=== PATIENT | female | born 1970 | race Caucasian/White ===

== ENCOUNTER 2018-11-22 13:00 | Emergency (ER) | payer OTHER ==
[~2018-11-22] VITALS: Ht 154.9 cm; Wt 63.5 kg
== END 2018-11-22 18:10 | disposition home or self-care (01) ==
LOC: ER 13:00
DX: R42 Dizziness and giddiness (principal)

== ENCOUNTER 2019-09-24 11:10 | Emergency (ER) | payer OTHER ==
[~2019-09-24] VITALS: Ht 165.1 cm; Wt 54.9 kg
[2019-09-24] MEDS ORDERED: AMBIEN5 MG (11:33)
[2019-09-24] MEDS ORDERED: XANAX1 MG (11:34)
[2019-09-24] MEDS ORDERED: WELLBUTRIN SR100 MG (11:34)
== END 2019-09-24 13:33 | disposition home or self-care (01) ==
LOC: ER 11:10
DX: J31.0 Chronic rhinitis (principal)

== ENCOUNTER 2021-05-28 17:21 | Emergency (ER) | payer OTHER ==
[~2021-05-28] VITALS: Ht 165.1 cm; Wt 67.1 kg
[~2021-05-28 17:21] MED LIST: AMBIEN5 MG; WELLBUTRIN SR100 MG; XANAX1 MG
[2021-05-28] MEDS ORDERED: CLONAZEPAM1 MG PO (17:48)
[2021-05-28] MEDS ORDERED: SEROQUEL XR300 MG PO (17:49)
[2021-05-28] MEDS ORDERED: KEPPRA500 MG PO (17:50)
== END 2021-05-28 20:19 | disposition home or self-care (01) ==
LOC: ER 17:21
DX: S89.82XA Other specified injuries of left lower leg, initial encounter (principal); X58.XXXA Exposure to other specified factors, initial encounter; Y92.89 Other specified places as the place of occurrence of the external cause; M76.9 Unspecified enthesopathy, lower limb, excluding foot

== ENCOUNTER 2024-12-11 16:51 | Emergency (ER) | payer OTHER ==
[~2024-12-11] VITALS: Ht 165.1 cm; Wt 68.0 kg
[~2024-12-11 16:51] MED LIST changes: +CLONAZEPAM1 MG PO; +KEPPRA500 MG PO; +SEROQUEL XR300 MG PO
[2024-12-11] MEDS ORDERED: FAMOtidine 10 MG/ML (4ML VIAL) IV ONE (17:15)
[2024-12-11] MEDS ORDERED: FAMOTIDINE/PF 20 MG/2 ML VIAL ONE (17:22)
[2024-12-11 17:28] LABS: BASO % 0.4 % (0.1-1.2); EOS # 0.08 (0.04-0.54); EOS % 0.9 % (0.7-7.0); LYMPH # 1.31 (1.18-3.74); LYMPH % 14.0 % (19.3-53.1); MEAN PLATELET VOLUME 9.10 fl (9.4-12.4); MONO # 0.52 (0.24-0.82); MONO % 5.6 % (4.7-12.5); NEUT # 7.36 (1.56-6.13); NEUT % 78.9 % (34.0-71.1); RED CELL DISTRIBUTION WIDTH 12.7 % (11.6-14.4)
[2024-12-11 17:56] LABS: INR 1.01
[2024-12-11 18:02] LABS: ALT/SGPT 27.0 U/L (12-78); AST/SGOT 17.0 U/L (15-37); BILIRUBIN TOTAL 0.45 mg/dL (0.3-1.2); BUN CREA RATIO 8.0 (7.0-25.0); CREATININE SERUM 1.08 mg/dL (0.55-1.02); GFR 52.87; GLOBULINA 3.7 G/DL (2.4-3.5); GLUCOSE FASTING 119.0 mg/dL (65-100); OSMOLALITY SERUM 276.0 MOSM/KG (275-295); PHOSPHOKINASE CREATININE 126.0 U/L (26-192)
[2024-12-11 18:43] LABS: URINE APPEARANCE Clear; URINE BILIRRUBIN Negative (NEGATIVE); URINE BLOOD Negative; URINE COLOR Yellow; URINE GLUCOSE Negative (NEGATIVE); URINE KETONE Trace (NEGATIVE); URINE LEUKOCYTE Negative; URINE NITRATE Negative; URINE PROTEIN 30 (NEGATIVE); URINE UROBILINOGEN 1.0 E.U./dl
[2024-12-11 18:47] LABS: URINE BACTERIA 275.9 uL (0.0-1933); URINE CAST 12.02 uL (0.0-1.40); URINE EPITHELIAL CELLS 19.2 uL (0.0-38.8); URINE RBC 4.6 uL (0.0-20.8); URINE WBC 71.0 uL (0.0-23.2)
[2024-12-11 18:56] LABS: URINE MUCUS SCANT
[2024-12-11] MEDS ORDERED: ACETAMINOPHEN 500 MG GEL..CAP PO ONE (19:29)
[2024-12-11] MEDS ORDERED: KEPPRA500 MG PO (19:43)
== END 2024-12-11 20:52 | disposition home or self-care (01) ==
LOC: ER 16:51
PROVIDERS: General Practice
DX: R56.9 Unspecified convulsions (principal)